=== PATIENT | female | born 1990 | race Caucasian/White ===

== ENCOUNTER 2018-06-09 08:20 | Emergency (ER) | payer MEDICAID, SELFPAY ==
[2018-06-09 08:27] VITALS: BP 111/73; PULSE 82; RESP 16; TEMP 36.3; O2SAT 98
--- NOTE | 2018-06-09 08:49 | DI.RAD_ITS ---
SYMPTOMS/DIAGNOSIS: PAIN, SWELLING, INJECTED HEROIN, ASSESS FOR FOREIGN BODY LEFT FOREARM: Two views. No bone or joint abnormality is identified. No radiopaque foreign bodies are seen in the soft tissues. IMPRESSION: No radiopaque foreign bodies present in the soft tissues.
--- NOTE | 2018-06-09 08:50 | W.ED.GENAD ---
Discharge Plan Disposition Patient Disposition: HOME Condition: Serious Discharge Details Chief Complaint: Cellulitis Clinical Impression: Abscess of forearm, left Primary Care Provider: Stacey Kendall ED Provider: Rikki Lopez Home Meds and New Rx's Prescriptions: New doxycycline hyclate 100 mg tablet 100 mg PO BID Qty: 19 RF: 0 amoxicillin-pot clavulanate [Augmentin] 875-125 mg tablet 1 tab PO BID Qty: 19 RF: 0 naloxone [Narcan] 4 mg/actuation spray,non-aerosol 1 spray MARGARITA ONCE PRN (Reason: opioid overdose) Qty: 2 RF: 0 Continue methadone 10 MG/1 ML concentrate 45 mg PO DAILY RF: 0 levonorgestrel [Mirena] 1 EACH intrauterine device 1 ea Intrauterine ONCE Qty: 1 RF: 0 bupropion HCl [Wellbutrin XL] 300 MG tablet extended release 24 hr 300 mg PO DAILY Qty: 90 RF: 3 Discharge Instructions Instructions: Narcotic Abuse (ED), Abscess (ED) Additional Instructions: Please take the full course of antibiotic as prescribed. Stop using IV drugs. Please follow-up with Dr. Jerez. Call his office on Sunday to schedule an appointment. Please contact your primary care physician to arrange follow-up. Return to the ER for any worsening or new concerning symptoms. Referrals: Raman Jerez MD [ [facility] STAFF PHYSICIAN] - Stacey Kendall NP [Primary Care Provider] - Medical Decision Making 8:55 -- 27yo f with swelling, pain and overlying erythema left mid forearm at heroin injection site, worsening over the past 3 days. Compartment soft with no crepitus. Pain with extension wrist. -- xray forearm reviewed and interpreted by me: neg for air in soft tissue or fb. -- bedside POC us performed by me: abscess noted 2cm deep. I consulted orthopedics Dr. Jerez who evaluated patient at bedside and performed I/D with local anesthetic - please see his documentation. We discussed abx coverage and plan to continue her on doxycyclin and augmentin. Patient to call Dr. Jerez's office to schedule follow-up. HPI General Mode of arrival: ambulatory. Date/Time Provider Initiated Documentation: 06/09/18 08:42. Limitations to Documentation: no limitations. Information obtained by: patient. HPI Narrative: 27-year-old female presents with chief complaint of painful swelling of her left forearm. Patient notes that started 2-3 days ago after she injected heroin in that area. And swelling is moderate to severe. Increasing. No modifiers. No associated fever. She has never had abscess in the past. Related Data Home Medications Medication Instructions Recorded Confirmed levonorgestrel [Mirena] 1 ea INTRAUTERINE ONCE #1 implant 05/12/15 06/09/18 methadone 45 mg PO DAILY 05/12/15 06/09/18 bupropion HCl [Wellbutrin XL] 300 mg PO DAILY #90 tab-cap 07/12/15 06/09/18 amoxicillin-pot clavulanate 1 tab PO BID #19 tab 06/09/18 [Augmentin] doxycycline hyclate 100 mg PO BID #19 tab 06/09/18 naloxone [Narcan] 1 spray MARGARITA ONCE PRN #2 each 06/09/18 Previous Rx's Medication Instructions Recorded amoxicillin-pot clavulanate 1 tab PO BID #19 tab 06/09/18 [Augmentin] doxycycline hyclate 100 mg PO BID #19 tab 06/09/18 naloxone [Narcan] 1 spray MARGARITA ONCE PRN #2 each 06/09/18 Allergies Allergy/AdvReac Type Severity Reaction Status Date / Time No Known Allergies Allergy Unverified 06/09/18 08:30 General Stated Complaint: Cellulitis CALUDE: 3 Review of Systems Review of Systems All systems reviewed & are unremarkable except as noted in HPI and below PFSH Family History Mother Mental disorder Father Alcohol abuse Sister No problems noted. Sister No problems noted. Brother No problems noted. Brother No problems noted. Brother No problems noted. Medical History IVDU (intravenous drug user) (Acute) adhd anxiety depression Social History Smoking/Tobacco Use Status: Current every day Surgical History Tonsillectomy Exam Const General: cooperative and no acute distress Neck Neck: trachea midline and supple Resp Auscultation: clear to auscultation bilaterally, no rales, no rhonchi and no wheezes Cardio Jugular venous pressure: no JVD Rate: regular rate and not tachycardic Rhythm: regular rhythm Skin Rashes: rashes noted (Left forearm with erythema and swelling) Other: Track segura right dorsal hand Neuro General: alert, awake, oriented x3, tone normal and other (no strength and sensation distal LUE) Motor: other Extrem Left upper extremity: full ROM, normal capillary refill, no joint enlargement and elbow/forearm Details: tenderness Location: of the mid-shaft forearm and swelling Location: of the mid-shaft forearm; no cyanosis Course Vital Signs Temperature 36.3 C L 06/09/18 08:27 Pulse 82 06/09/18 08:27 Respiratory Rate 16 06/09/18 08:27 Blood Pressure 111/73 06/09/18 08:27 Pulse Oximetry 98 06/09/18 08:27 Temperature 36.3 C L 06/09/18 08:27 Temperature Source Skin 06/09/18 08:27 Pulse 82 06/09/18 08:27 Respiratory Rate 16 06/09/18 08:27 Respiratory Effort 06/09/18 08:27 Blood Pressure 111/73 06/09/18 08:27 Blood Pressure Position Sitting 06/09/18 08:27 Pulse Oximetry 98 06/09/18 08:27 Oxygen Delivery Method Room Air 06/09/18 08:27 Oxygen Flow Rate 0 06/09/18 08:27 Pain Level 5 06/09/18 08:27
--- NOTE | 2018-06-09 08:55 | ED.GENADUL_ITS ---
Discharge Plan Disposition Patient Disposition: HOME Condition: Serious Discharge Details Chief Complaint: Cellulitis Clinical Impression: Abscess of forearm, left Primary Care Provider: Stacey Kendall ED Provider: Rikki Lopez Home Meds and New Rx's Prescriptions: New doxycycline hyclate 100 mg tablet 100 mg PO BID Qty: 19 RF: 0 amoxicillin-pot clavulanate [Augmentin] 875-125 mg tablet 1 tab PO BID Qty: 19 RF: 0 naloxone [Narcan] 4 mg/actuation spray,non-aerosol 1 spray MARGARITA ONCE PRN (Reason: opioid overdose) Qty: 2 RF: 0 Continue methadone 10 MG/1 ML concentrate 45 mg PO DAILY RF: 0 levonorgestrel [Mirena] 1 EACH intrauterine device 1 ea Intrauterine ONCE Qty: 1 RF: 0 bupropion HCl [Wellbutrin XL] 300 MG tablet extended release 24 hr 300 mg PO DAILY Qty: 90 RF: 3 Discharge Instructions Instructions: Narcotic Abuse (ED), Abscess (ED) Additional Instructions: Please take the full course of antibiotic as prescribed. Stop using IV drugs. Please follow-up with Dr. Jerez. Call his office on Sunday to schedule an appointment. Please contact your primary care physician to arrange follow-up. Return to the ER for any worsening or new concerning symptoms. Referrals: Raman Jerez MD [ [facility] STAFF PHYSICIAN] - Stacey Kendall NP [Primary Care Provider] - Medical Decision Making 8:55 -- 27yo f with swelling, pain and overlying erythema left mid forearm at heroin injection site, worsening over the past 3 days. Compartment soft with no crepitus. Pain with extension wrist. -- xray forearm reviewed and interpreted by me: neg for air in soft tissue or fb. -- bedside POC us performed by me: abscess noted 2cm deep. I consulted orthopedics Dr. Jerez who evaluated patient at bedside and performed I/D with local anesthetic - please see his documentation. We discussed abx coverage and plan to continue her on doxycyclin and augmentin. Patient to call Dr. Jerez's office to schedule follow-up. HPI General Mode of arrival: ambulatory . Date/Time Provider Initiated Documentation: 06/09/18 08:42 . Limitations to Documentation: no limitations . Information obtained by: patient . HPI Narrative: 27-year-old female presents with chief complaint of painful swelling of her left forearm. Patient notes that started 2-3 days ago after she injected heroin in that area. And swelling is moderate to severe. Increasing. No modifiers. No associated fever. She has never had abscess in the past. Related Data Home Medications Medication Instructions Recorded Confirmed levonorgestrel [Mirena] 1 ea INTRAUTERINE ONCE #1 implant 05/12/15 06/09/18 methadone 45 mg PO DAILY 05/12/15 06/09/18 bupropion HCl [Wellbutrin XL] 300 mg PO DAILY #90 tab-cap 07/12/15 06/09/18 amoxicillin-pot clavulanate 1 tab PO BID #19 tab 06/09/18 [Augmentin] doxycycline hyclate 100 mg PO BID #19 tab 06/09/18 naloxone [Narcan] 1 spray MARGARITA ONCE PRN #2 each 06/09/18 Previous Rx's Medication Instructions Recorded amoxicillin-pot clavulanate 1 tab PO BID #19 tab 06/09/18 [Augmentin] doxycycline hyclate 100 mg PO BID #19 tab 06/09/18 naloxone [Narcan] 1 spray MARGARITA ONCE PRN #2 each 06/09/18 Allergies Allergy/AdvReac Type Severity Reaction Status Date / Time No Known Allergies Allergy Unverified 06/09/18 08:30 General Stated Complaint: Cellulitis CLAUDE: 3 Review of Systems Review of Systems All systems reviewed & are unremarkable except as noted in HPI and below PFSH Family History Mother Mental disorder Father Alcohol abuse Sister No problems noted. Sister No problems noted. Brother No problems noted. Brother No problems noted. Brother No problems noted. Medical History IVDU (intravenous drug user) (Acute) adhd anxiety depression Social History Smoking/Tobacco Use Status: Current every day Surgical History Tonsillectomy Exam Const General: cooperative and no acute distress Neck Neck: trachea midline and supple Resp Auscultation: clear to auscultation bilaterally, no rales, no rhonchi and no wheezes Cardio Jugular venous pressure: no JVD Rate: regular rate and not tachycardic Rhythm: regular rhythm Skin Rashes: rashes noted (Left forearm with erythema and swelling) Other: Track segura right dorsal hand Neuro General: alert, awake, oriented x3, tone normal and other (no strength and sensation distal LUE) Motor: other Extrem Left upper extremity: full ROM, normal capillary refill, no joint enlargement and elbow/forearm Details: tenderness Location: of the mid-shaft forearm and swelling Location: of the mid-shaft forearm; no cyanosis Course Vital Signs Temperature 36.3 C L 06/09/18 08:27 Pulse 82 06/09/18 08:27 Respiratory Rate 16 06/09/18 08:27 Blood Pressure 111/73 06/09/18 08:27 Pulse Oximetry 98 06/09/18 08:27 Temperature 36.3 C L 06/09/18 08:27 Temperature Source Skin 06/09/18 08:27 Pulse 82 06/09/18 08:27 Respiratory Rate 16 06/09/18 08:27 Respiratory Effort 06/09/18 08:27 Blood Pressure 111/73 06/09/18 08:27 Blood Pressure Position Sitting 06/09/18 08:27 Pulse Oximetry 98 06/09/18 08:27 Oxygen Delivery Method Room Air 06/09/18 08:27 Oxygen Flow Rate 0 06/09/18 08:27 Pain Level 5 06/09/18 08:27
--- NOTE | 2018-06-09 10:12 | DI.VRAD_ITS ---
EXAM: XR Left Forearm, 2 Views EXAM DATE/TIME: 06/09/2018 9:09 AM CLINICAL HISTORY: 27 years old, female; Signs and symptoms; Other: Pain and swelling, injected heroine, assess fo fb TECHNIQUE: XR Left forearm 2 views. COMPARISON: No relevant prior studies available. FINDINGS: Bones/joints: Normal. No acute fracture. No dislocation. Soft tissues: No metallic foreign body identified. IMPRESSION: No metallic foreign body identified. Dictated and Authenticated by: Lee Valerio MD. Ordering:MARIA ESTHER BARAJAS MD
--- NOTE | 2018-06-09 10:38 | W.ORTHOCONSU ---
Date of service: 06/09/18 Time of Service: 10:38 History of Present Illness Chief Complaint: Left Forearm Pain Narrative: Tia is a 27yo who has a history of IVDU. She has had many social stressors lately and relapsed about 3 days ago. She had a friend inject the ulnar aspect of the left forearm. Over the last 2 days this area has become more tense, swollen, warm, and red. She denies any numbness or tingling. She has had pain with movement of the wrist and fingers but she is able to do it. She denies any fever or chills. She has had no previous infections. Consults Consult date: 06/09/18 Requesting physician: Rikki Lopez Consult Reason Left Forearm Abscess Assessment and Plan (1) Abscess of left forearm: Start date: 06/06/18 Current visit: Yes Status: Acute Tia is a 27yo female who has a history of IVDU and an unfortunate relapse about 3 days ago. She has an abscess of the left forearm. It is located above the fascia in the dorsal soft tissues of the forearm based on the bedside U/S performed by Dr. Lopez. I had a long discussion with Tia about treatment options. She frequently asks about how long it's going to take and want to make it better as quick as possible and get out of the hospital. Given the location above the fascia, no systemic features, no signs of compartment syndrome, and no signs of necrotizing fasciitis, we can attempt a bedside I&D. I reviewed these risks with Tia to include bleeding, continued infection, recurrence, need for repeat procedures, wound healing difficulties. Despite these risks, she elected to proceed. She tolerated this well and we were able evacuate a large amount of purulence from the left forearm. This was sent to the lab for cultures. The purulence did have a strong malodor which is concerning for Gram Negative Neymar. Therefore, we will treat with Doxy for possible MRSA as well as Cipro for GNR. Review of Systems Review of Systems All systems reviewed & are unremarkable except as noted in HPI and below PFSH Family History Mother Mental disorder Father Alcohol abuse Sister No problems noted. Sister No problems noted. Brother No problems noted. Brother No problems noted. Brother No problems noted. Medical History IVDU (intravenous drug user) (Acute) adhd anxiety depression Social History Smoking/Tobacco Use Status: Current every day Surgical History Tonsillectomy Exam Narrative Exam Narrative: NAD. AAOx3. Not ill appearing. LUE shows rather full AROM. She is able to move her elbow and shoulder without limitation. She is able to demonstrate ulnar and radial deviation, pronation and supination, flexion and extension. She has some pain with those movements but has no significant limitation. There is some pain with the extremes of passive motion. No pain with gentle passive stretch. SILT Med/Rad/Uln. Fullness palpated over the ulnar aspect of the forearm. There is a central area of induration about 2cm in diameter with erythema expanding from this area. There is a fullness about 8cm in length expanding from this central area. There is no defect in the skin or sign of previous injection. There is no drainage or wound. There is pain to palpation and warmth of the area. Results Last Vital Signs Temp 36.3 C L 06/09/18 08:27 Pulse 82 06/09/18 08:27 Resp 16 06/09/18 08:27 BP 111/73 06/09/18 08:27 Pulse Ox 98 06/09/18 08:27 Labs : 06/09/18 10:14 06/09/18 10:14 Imaging Imaging Studies: XR of the L Forearm: There is no fracture. No radiopaque foreign body. No gas in the soft tissues. Procedures Abscess I/D Site: upper extremity (left forearm) Side (if applicable): left Sedation/analgesia: none Anesthetic used: bupivacaine Technique: incised with #11 blade Amount of fluid (mL): 20 Irrigation: Yes Packing used?: none
[2018-06-09] MEDS: Lidocaine 4% Cream 5 GM TUBE TP (10:51)
[2018-06-09 11:30] VITALS: BP 111/75; PULSE 71; RESP 16; TEMP 37.4; O2SAT 97
[2018-06-09 11:32] VITALS: BP 116/77; PULSE 79; RESP 14; TEMP 37.4; O2SAT 95
[2018-06-09] MEDS: Doxycycline Hyclate 100 MG CAP PO (11:44)
[2018-06-09] MEDS: Amoxicillin 875/Clav. 125 TAB PO (11:44)
== END 2018-06-09 12:26 | disposition home or self-care (01) ==
PROVIDERS: Emergency Provider Student in an Organized Health Care Education/Training Program; PCP Nurse Practitioner
DX: L02.414 Cutaneous abscess of left upper limb (principal); S51.832A Puncture wound without foreign body of left forearm, initial encounter; W46.0XXA Contact with hypodermic needle, initial encounter; R60.0 Localized edema; F11.10 Opioid abuse, uncomplicated
CPT/HCPCS: 10060; 36415; 80053; 87040; 87077; 99254; 99284; 73090; 85025; 87070; 87186; 87205

== ENCOUNTER 2018-11-27 11:55 | Emergency (ER) | payer MEDICAID, SELFPAY ==
[2018-11-27 12:00] VITALS: BP 141/90; PULSE 122; RESP 20; TEMP 37; O2SAT 95
--- NOTE | 2018-11-27 12:13 | ED.GENADUL_ITS ---
Discharge Plan Disposition Patient Disposition: HOME Condition: Stable Discharge Details Chief Complaint: Cellulitis Clinical Impression: Abscess of hand, left Primary Care Provider: Stacey Kendall ED Provider: Femi Gaines Home Meds and New Rx's Prescriptions: New sulfamethoxazole-trimethoprim [Bactrim DS] 800-160 mg tablet 1 tab PO BID 5 Days Qty: 10 RF: 0 No Action methadone 10 MG/1 ML concentrate 45 mg PO DAILY RF: 0 Mirena 1 EACH intrauterine device 1 ea Intrauterine ONCE Qty: 1 RF: 0 Narcan 4 mg/actuation spray,non-aerosol 1 spray MARGARITA ONCE PRN (Reason: opioid overdose) Qty: 2 RF: 0 Discharge Instructions Instructions: Abscess (ED) Medical Decision Making pt states she injected heroin in left posterior hand 3 days ago or so and has had increased redness and swelling since. he has an abscess on exam that is 3x2cm of the left mid posterior hand. Denies fevers, has no severe pain or crepitus so doubt sepsis or nec fasc. I drained the abscess and will place on abx, she was given return precautions as well. She is not interested in drug abuse programs at this time Differential Diagnosis cellulitis, abscess HPI General Mode of arrival: ambulatory . Date/Time Provider Initiated Documentation: 11/27/18 11:55 . Limitations to Documentation: no limitations . Information obtained by: patient . History of Present Illness 28 year old F presents to the emergency department with the chief complaint of left hand abscess, described as moderate, Patient started experiencing this day(s) (3) and it has been constant. No relieving factors improve symptom(s), No exacerbating factors reported . Patient did receive the following treatments prior to arrival, none Related Data Home Medications Medication Instructions Recorded Confirmed Mirena 1 ea INTRAUTERINE ONCE #1 implant 05/12/15 11/27/18 methadone 45 mg PO DAILY 05/12/15 11/27/18 naloxone [Narcan] 1 spray MARGARITA ONCE PRN #2 each 06/09/18 11/27/18 sulfamethoxazole-trimethoprim 1 tab PO BID 5 Days #10 tab 11/27/18 [Bactrim DS] Previous Rx's Medication Instructions Recorded naloxone [Narcan] 1 spray MARGARITA ONCE PRN #2 each 06/09/18 sulfamethoxazole-trimethoprim 1 tab PO BID 5 Days #10 tab 04/24/19 [Bactrim DS] Allergies Allergy/AdvReac Type Severity Reaction Status Date / Time No Known Allergies Allergy Unverified 11/27/18 12:02 General Stated Complaint: Cellulitis CLAUDE: 3 Review of Systems Review of Systems All systems reviewed & are unremarkable except as noted in HPI and below Constitutional Denies chills, Denies fever(s) and Denies weakness ENT Denies change in voice Cardiovascular Denies chest pain and Denies dyspnea Respiratory Denies cough and Denies dyspnea Gastrointestinal Denies abdominal pain, Denies nausea and Denies vomiting Musculoskeletal Denies joint swelling Neurologic Denies weakness PFSH Medical History IVDU (intravenous drug user) (Acute) adhd anxiety depression Surgical History Tonsillectomy Family History Mother Mental disorder Father Alcohol abuse Sister No problems noted. Sister No problems noted. Brother No problems noted. Brother No problems noted. Brother No problems noted. Social History Smoking/Tobacco Use Status: Current every day Alcohol Intake: never Drug use: Occasionally Substance use type: crack/cocaine, heroin and other Details: methadone Do you feel safe at home: Yes Do you feel safe in your relationship?: Yes Exam Const General: no acute distress Orientation: alert HENMT Head: normal to inspection Ears: external ears normal General nose exam: external nose normal Mouth: moist mucous membranes Eyes General: appearance normal, both eyes and all related structures Neck Neck: normal visual inspection Resp Effort & Inspection: normal respiratory effort and able to speak in complete sentences Cardio Rate: regular rate Skin General skin exam: elasticity normal Neuro General: alert and oriented x3 Extrem General: full ROM and normal capillary refill Psych Mental Status: mental status grossly normal Course Vital Signs Temperature 37 C 11/27/18 12:00 Pulse 122 H 11/27/18 12:00 Respiratory Rate 20 11/27/18 12:00 Blood Pressure 141/90 H 11/27/18 12:00 Pulse Oximetry 95 11/27/18 12:00 Temperature 37 C 11/27/18 12:00 Temperature Source Temporal Artery Scan 11/27/18 12:00 Pulse 122 H 11/27/18 12:00 Respiratory Rate 20 11/27/18 12:00 Respiratory Effort Non-Labored 11/27/18 12:00 Blood Pressure 141/90 H 11/27/18 12:00 Pulse Oximetry 95 11/27/18 12:00 Pain Level 8 11/27/18 12:00
[2018-11-27 12:14] VITALS: BP 141/90; PULSE 122; RESP 20; TEMP 37; O2SAT 95
== END 2018-11-27 12:15 | disposition home or self-care (01) ==
PROVIDERS: Emergency Provider Emergency Medicine; PCP Nurse Practitioner
DX: L02.412 Cutaneous abscess of left axilla (principal)
CPT/HCPCS: 10060

== ENCOUNTER 2024-03-31 16:33 | Emergency (ER) | payer MEDICAID, SELFPAY ==
[2024-03-31 16:37] VITALS: BP 124/78; PULSE 69; RESP 18; TEMP 36.7; O2SAT 98
--- NOTE | 2024-03-31 18:35 | ED.GENADUL_ITS ---
Discharge Plan Disposition Patient Disposition: Home Condition: Stable Discharge Details Clinical Impression: Abscess, Finger injury Primary Care Provider: Unknown,Unknown ED Provider: Maddison Dinh Home Meds and New Rx's Prescriptions: New cephalexin 500 mg capsule 500 mg PO QID 7 Days Qty: 28 0RF sulfamethoxazole-trimethoprim [Bactrim DS] 800-160 mg tablet 1 tab PO BID 7 Days Qty: 14 0RF No Action methadone 10 MG/1 ML concentrate 45 mg PO DAILY Mirena 1 EACH intrauterine device 1 ea Intrauterine ONCE Qty: 1 naloxone [Narcan] 4 mg/actuation spray,non-aerosol 1 spray MARGARITA ONCE PRN (Reason: opioid overdose) Qty: 2 0RF Discharge Instructions Instructions: Abscess Incision and Drainage ED Additional Instructions: You were seen in the emergency department today for evaluation of a finger injury. You had an abscess drained and were started on antibiotics. Please follow up with your PCP and thank you for allowing us to be part of your care. Discharge Data Discharge Date/Time-TO BE ENTERED AT DEPARTURE: 03/31/24 18:57 HPI General Date/Time Provider Initiated Documentation: 03/31/24 18:03 . HPI Narrative: MDM: In brief, this is a 33-year-old female patient with a past medical history for IVDU, anxiety, presenting with a finger injury. Differential includes but is not limited to abscess, cellulitis, the injury was to skin only, and the patient did not have a mechanism concerning for fracture or dislocation. She has no evidence on my physical examination for flexor tenosynovitis,. She is systemically well without concern for sepsis or bacteremia. ED Course: The blister was unroofed with drainage of purulent material, which w as sent for culture. I started the patient on Keflex and Bactrim for abscess coverage, and provided her with a referral to primary care. At this time, the patient has had a full medical evaluation and is safe for discharge to home. They are hemodynamically stable, ambulatory, and tolerating PO. They are understanding of the follow-up plan and return precautions. They left our facility without incident. Maddison Dinh MD HPI: This is a 33-year-old female patient presenting for evaluation of a finger injury. The patient reports that approximately a week ago she pinched the skin of her right index finger, and initially felt fine, but noted a blister formed it became more painful over the course of the last few days. She has not noted any redness or swelling that extends up her finger, has preserved range of motion of the finger, and has not been running a fever or experiencing chills. She has been eating and drinking normally for herself, has no history of recent antibiotic use. Exam: Gen: Awake and alert, in no apparent distress HEENT: Non-icteric sclera Neck: Supple Lungs: No apparent respiratory distress, normal respiratory effort. CV: Appears well perfused Abdomen: Non-distended MSK: Moves 4 extremities without apparent limitation in ROM Skin: Visualized skin without rashes, cyanosis. The patient has a 1 cm blister on the dorsal aspect of the right index finger over the middle phalanx, no nailbed involvement, no flexor tendon swelling or pain, finger is not held in a flexed position, range of motion preserved Neuro: Normal Gait, no obvious focal deficits or facial asymmetry. Speaks in full, clear sentences. Sensation and circulation preserved distal to the abscess. Psych: Appropriate for situation. Related Data Home Medications ?Medication ?Instructions ?Recorded ?Confirmed levonorgestrel 21 mcg/24 hr (up to 1 ea intrauterine ONCE #1 implant 05/12/15 03/31/24 8 years) 52 mg intrauterine device (Mirena) methadone 10 mg/mL oral concentrate 45 mg PO DAILY 05/12/15 03/31/24 naloxone 4 mg/actuation nasal 1 spray intranasal ONCE PRN opioid 06/09/18 03/31/24 spray (Narcan) overdose #2 ea cephalexin 500 mg capsule 500 mg PO QID 1 week #28 caps 03/31/24 sulfamethoxazole 800 1 tab PO BID 1 week #14 tabs 03/31/24 mg-trimethoprim 160 mg tablet (Bactrim DS) Previous Rx's ?Medication ?Instructions ?Recorded naloxone 4 mg/actuation nasal 1 spray intranasal ONCE PRN opioid 06/09/18 spray (Narcan) overdose #2 ea cephalexin 500 mg capsule 500 mg PO QID 1 week #28 caps 03/31/24 sulfamethoxazole 800 1 tab PO BID 1 week #14 tabs 03/31/24 mg-trimethoprim 160 mg tablet (Bactrim DS) Allergies Allergy/AdvReac Type Severity Reaction Status Date / Time No Known Allergies Allergy Unverified 03/31/24 16:40 General Stated Complaint: Cellulitis CLAUDE: 4 Course Vital Signs Vital signs: Vital Signs Temperature 36.7 C 03/31/24 16:37 Pulse 69 03/31/24 16:37 Respiratory Rate 18 03/31/24 16:37 Blood Pressure 124/78 03/31/24 16:37 Pulse Oximetry 98 03/31/24 16:37 Temperature 36.7 C 03/31/24 16:37 Pulse 69 03/31/24 16:37 Respiratory Rate 18 03/31/24 16:37 Respiratory Effort Normal 03/31/24 16:40 Blood Pressure 124/78 03/31/24 16:37 Pulse Oximetry 98 03/31/24 16:37 Pain Level 2 03/31/24 16:37 Medical Decision Making Quality:SDOH Health Related Social Needs: No Data to Display PFSH All Active Problems (Updated 03/31/24 @ 18:35 by Maddison Dinh MD) Finger injury (Acute) Abscess (Acute) IVDU (intravenous drug user) (Acute) Abscess of left forearm (Acute) Medical History (Updated 03/31/24 @ 18:35 by Maddison Dinh MD) depression anxiety adhd Surgical History Tonsillectomy Family History Mother Mental disorder Father Alcohol abuse Sister No problems noted. Sister No problems noted. Brother No problems noted. Brother No problems noted. Brother No problems noted. Social History Smoking/Tobacco Use Status: Current every day Smoking risk assessment performed?: Yes Alcohol Intake: never Drug use: Occasionally Substance use type: crack/cocaine, heroin and other Details: methadone Do you feel safe at home: Yes Do you feel safe in your relationship?: Yes
[2024-03-31] MEDS: Sulfameth/Trimeth DS TAB 1 TAB PO (18:38)
[2024-03-31] MEDS: Cephalexin 500 MG CAP PO (18:38)
--- NOTE | 2024-03-31 19:01 | NUR.NOTE ---
Referral faxed to [facility] [place] on for telephone call. Needs PCP, abscess finger, establish care, in 1 week. Nursing Note:
--- NOTE | 2024-04-01 11:21 | NUR.NOTE ---
Access chart to determine antibiotics on discharge for wound culture; MRSA positive. Nursing Note:
== END 2024-03-31 18:57 | disposition home or self-care (01) ==
PROVIDERS: Emergency Provider Emergency Medicine
DX: S60.420A Blister (nonthermal) of right index finger, initial encounter (principal); L03.011 Cellulitis of right finger; W23.0XXA Caught, crushed, jammed, or pinched between moving objects, initial encounter
CPT/HCPCS: 10140; 87077; 99283; 87070; 87186; 87205; 99284

== ENCOUNTER 2024-07-21 18:06 | Emergency (ER) | payer MEDICAID, SELFPAY ==
[2024-07-21 18:30] VITALS: BP 154/71; PULSE 99; RESP 15; TEMP 36.6; O2SAT 91
--- OUTSIDE RECORDS SUMMARY | 2024-07-21 18:34 | XMS_ITS | Encounter Summary ---
Author Organization [facility] Address [address] [place] [address] Care Team Providers Care Power Manager Name Role Phone Daniel Rich MD Primary Care Provider Unav ailable Encounter Details Date Type Department Care Team ([facility] st Contact Info) Description 06/03/2019 Results Only [facility] [phone] Kacy Paredes MD [address] [place] [phone] Social History Tobacco Use Types Packs/Day Years Used Date Smoking Tobacco: Never Assessed Comments Unknown Sex and Gender Information Value Date Recorded Sex Assigned at Not on file Legal Sex Female 18:33 EST Gender Identity Not on file Sexual Orientation Not on file documented as of this encounter Plan of Treatment Not on file documented as of this encounter Procedures Procedure Name Priority Date/Time Associated Diagnosis Comments CHLAMYDIA/N. GONORRHOEAE AMPLIFIED RNA, URINE Routine 06/03/2019 15:40 EDT documented in this encounter Results * CHLAMYDIA/N. GONORRHOEAE AMPLIFIED RNA, URINE (06/03/2019 15:40 EDT) Chlamydia Result Negative 06/04/20 19 12:56 EDT [facility] GC Result Negative 06/04/2019 12:56 EDT [facility] Comment: A first catch urine specimen is acceptable for detection of Gonorrhea and Chlamydia, but might detect up to 10% fewer infections when compared with vaginal and endocervical swab samples. URINE / Unknown 06/03/2019 1 5:40 EDT 06/03/2019 21:31 EDT us Kacy Paredes MD MICROBIOLOGY - GENERAL ORDERABL ES Final Result [facility] [address] [place] [address] documented in this encounter Visit Diagnoses Not on filedocumented in this encounter Care Teams Power Manager Relationship Specialty Start Date End Date Daniel Rich MD PCP - General 07/21/11 documented as of this encounter
--- OUTSIDE RECORDS SUMMARY | 2024-07-21 18:34 | XMS_ITS | Encounter Summary ---
Author Organization [facility] Address [address] [place] [address] Care Team Providers Care Welfare Worker Name Role Phone Daniel Rich MD Primary Care Provider Unav ailable Encounter Details Date Type Department Care Team (Late st Contact Info) Description 10/14/[address] [facility] Services - [facility] ([facility]) [address] [place], [place] [address] Macy Odonnell MD [address] [place] [address] [address] [place] [address] Social History Tobacco Use Types Packs/Day Years [...] Comments CHLAMYDIA/N. GONORRHOEAE AMPLIFIED RNA, URINE Routine 10/14/2012 15:30 EDT HEPATITIS C AB W REFLEX TO HCV RNA BY PCR Routine 10/14/2012 15:30 EDT HEPATITIS B CORE ANTIBODY (TOTAL) Routine 10/14/2012 15:30 EDT HEPATITIS B SURFACE ANTIBODY Routine 10/14/2012 15:30 EDT HEPATITIS B SURFACE ANTIGEN Routine 10/14/2012 15:30 EDT documented in this encounter Results * CHLAMYDIA/GC AMPLIFIED, URINE (10/14/2012 15:30 EDT) Specimen Description Urine [facility] Chlamydia Result No Chlamydia trachomatis DNA detected by society reporter mediated amplification. [facility] GC Result No Neisseria gonorrhoeae DNA detected by society reporter mediated amplification. [facility] 10/14/2012 15:3 0 EDT 10/14/2012 20:38 EDT Macy Odonnell MD MICROBIOLOGY - GENERAL OR DERABLES Final Result [facility] [address] [place] [address] * HEPATITIS C ANTIBODY (10/14/2012 15:30 EDT) Hepatitis C Ab Negative [facility] Comment:Reference Range: Neg ative 10/14/2012 15:3 0 EDT 10/14/2012 20:16 EDT Macy Odonnell MD CHEMISTRY & BLOOD GAS ORD ERABLES Final Result Performing Organization Address [facility] Co de Phone Number [facility] [address] [place] [address] * HEPATITIS B CORE ANTIBODY (10/14/2012 15:30 EDT) Hep B Core Ab Negative [facility] Comment: Reference Range: ??Negative Interpretation depends on clinical setting. 10/14/2012 15:3 0 EDT 10/14/2012 20:16 EDT Macy Odonnell MD CHEMISTRY & BLOOD GAS ORD ERABLES Final Result Performing Organization Address [facility] Co de Phone Number [facility] [address] [place] [address] * HEPATITIS B SURFACE ANTIGEN (10/14/2012 15:30 EDT) Hepatitis B Surface Ag Negative [facility] Comment:Reference Range: Neg ative 10/14/2012 15:3 0 EDT 10/14/2012 20:16 EDT Macy Odonnell MD CHEMISTRY & BLOOD GAS ORD ERABLES Final Result Performing Organization Address [facility] de Phone Number [facility] [address] [place] [address] * HEPATITIS B SURFACE ANTIBODY (10/14/2012 15:30 EDT) Hepatitis B Surface Ab Negative [facility] Comment: Reference Range: Unvaccinated: ??Negative Vaccinated: ??Positive HBs Antibody, Quant <5.0 mIU/mL [facility] Comment: Patient is presumed to not be immune to infection with HBV. Reference Range: Positive: >=12.0 mIU/mL Indeterminate: >=5.0 to <12.0 mIU/mL Negative: <5.0 mIU/mL 10/14/2012 15:3 0 EDT 10/14/2012 20:16 EDT Macy Odonnell MD CHEMISTRY & BLOOD GAS ORD ERABLES Final Result Performing Organization Address [facility] Co de Phone Number [facility] [address] [place] [address] documented in this encounter Visit Diagnoses Not on filedocumented in this encounter Care Teams Welfare Worker Relationship Specialty Start Date End Date Daniel Rich MD PCP - General 07/21/11 documented as of this encounter
--- OUTSIDE RECORDS SUMMARY | 2024-07-21 18:34 | XMS_ITS | Encounter Summary ---
Author Organization [facility] Address [address] [place] [address] Care Team Providers Care Corncob Pipe Manufacturing Supervisor Name Role Phone Daniel Rich MD Primary Care Provider Unav ailable Encounter Details Date Type Department Care Team (Latest Contact Info) Description 06/03/2019 8:31 EDT - 06/03/2019 8:32 EDT Hospital Encounter [address] [address] Kacy Paredes MD [address] [place] [phone] Discharge Disposition: Home or Self Care Social History Tobacco Use Types Packs/Day Years Used Date Smoking Tobacco: Never Assessed Comments Unknown Sex and Gender Information Value Date Recorded Sex Assigned at Not on file Legal Sex Female 18:33 EST Gender Identity Not on file Sexual Orientation Not on file documented as of this encounter Discharge Diagnoses Diagnosis Z11.3 Encounter for screening for infections with a predominantly sexual mode of transmission-Z11.3[ICD-10-CM] Z11.8 Encounter for screening for other infectious and parasitic diseases-Z11.8[ICD-10-CM] documented in this encounter Discharge Disposition Disposition Code Departure Means Destination Home or Self Care documented in this encounter Plan of Treatment Not on file documented as of this encounter Visit Diagnoses Not on filedocumented in this encounter Care Teams Corncob Pipe Manufacturing Supervisor Relationship Specialty Start Date End Date Daniel Rich MD PCP - General 07/21/11 documented as of this encounter
--- OUTSIDE RECORDS SUMMARY | 2024-07-21 18:34 | XMS_ITS | Encounter Summary ---
Author Organization [facility] Address [address] [place] [address] Care Team Providers Care Fur Stretcher Name Role Phone Daniel Rich MD Primary Care Provider Unav ailable Encounter Details Date Type Department Care Team (Late st Contact Info) Description 07/21/2011 8:13 EST - 07/21/2011 8:14 EST Hospital Encounter [facility] [address] [place] [address] Remigio Rock MD [address] [place] [phone] Discharge Disposition: Home or Self Care Social History Tobacco Use Types Packs/Day Years Used Date Smoking Tobacco: Never Assessed Comments Unknown Sex and Gender Information Value Date Recorded Sex Assigned at Not on file Legal Sex Female 18:33 EST Gender Identity Not on file Sexual Orientation Not on file documented as of this encounter Discharge Disposition Disposition Code Departure Means Destination Home or Self Care documented in this encounter Plan of Treatment Not on file documented as of this encounter Visit Diagnoses Not on filedocumented in this encounter Care Teams Fur Stretcher Relationship Specialty Start Date End Date Daniel Rich MD PCP - General 07/21/11 documented as of this encounter
--- OUTSIDE RECORDS SUMMARY | 2024-07-21 18:34 | XMS_ITS | Encounter Summary ---
Author Organization [facility] Address [address] [place] [address] Care Team Providers Care Box Bender Name Role Phone Unavailable Primary Care Provider Unavailabl e Encounter Details Date Type Department Care Team (Late st Contact Info) Description 05/10/2010 Results Only [facility] O[facility] Services - [facility] [address] [place] [address] Isaac Domínguez MD [address] [place] [phone] Social History Tobacco Use Types Packs/Day Years Used Date Smoking Tobacco: Never Assessed Comments Unknown Sex and Gender Information Value Date Recorded Sex Assigned at Not on file Legal Sex Female 18:33 EST Gender Identity Not on file Sexual Orientation Not on file documented as of this encounter Plan of Treatment Pending Results Name Type Priority Associated Diagnoses Date /Time CHLAMYDIA/GC AMPLIFIED Microbiology Routine 07/21/2011 11:26 EST documented as of this encounter Procedures Procedure Name Priority Date/Time Associated Diagnosis Comments CYTOPATHOLOGY Routine 05/10/2010 0:00 EDT documented in this encounter Results * CYTOPATHOLOGY (05/10/2010 0:00 EDT) Pathology Report: CYTOPATHOLOGY REPORT ? Reports generated via electronic interface contain original data; ? however they are lacking the format of the original report. ? Caution should be taken when reading/interpreti ng unformatted reports. ? Name: ? TIA GALVAN ? Accession #: ? [id number] ? : ? 1990 (Age: 19) ??F ?Collect Date: ? 05/10/2010 ? Location: ? [facility] ? Receive Date: ? 05/12/2010 ? Provider: ?ISAAC DOMÍNGUEZ MD ? Copy to: ? Specimen/Source: ?Pap Test, Cervix/Endocervix, ThinPrep Imaging System ? with manual evaluation ? Last Menstrual Period: ? May ? Menstrual/Pregnanc y Status: ? Other: ? HPVA - HPV testing requested if ASC-US on the current ThinPrep Pap test. ? SPECIMEN ADEQUACY ? Satisfactory for Evaluation ? - transformation zone component present ? - scant squamous epithelial component secondary to excessive mucus ? GENERAL CATEGORIZATION ? Negative for Intraepithelial Lesion or Malignancy ? Document reviewed and electronically signed by: ? Addy Stumler, CT(ASCP) ? Report Date: ??05/16/2010 10:31 ? End of Report ? [facility] 05/10/2010 05/12/2010 us Isaac Domínguez MD PATHOLOGY O RDERABLES Final Result [facility] [address] [place] [address] documented in this encounter Visit Diagnoses Not on filedocumented in this encounter
--- OUTSIDE RECORDS SUMMARY | 2024-07-21 18:34 | XMS_ITS | Encounter Summary ---
Author Organization [facility] Address [address] [place] [address] Care Team Providers Care Merchandise Coordinator Name Role Phone Daniel Rich MD Primary Care Provider Unav ailable Encounter Details Date Type Department Care Team (Late st Contact Info) Description 10/14/2012 12:36 EDT - 10/14/2012 12:37 EDT Hospital Encounter [address] [address] Macy Odonnell MD [address] [place] [phone] Discharge Disposition: Home or Self Care Social [...] on filedocumented in this encounter Care Teams Merchandise Coordinator Relationship Specialty Start Date End Date Daniel Rich MD PCP - General 07/21/11 documented as of this encounter
--- OUTSIDE RECORDS SUMMARY | 2024-07-21 18:34 | XMS_ITS | Encounter Summary ---
Author Organization [facility] Address [address] [place] [address] Care Team Providers Care Java Web Application Developer Name Role Phone Unavailable Primary Care Provider Unavailabl e Encounter Details Date Type Department Care Team (Late st Contact Info) Description 05/10/2011 Documentation Visit [facility] Pediatric Primary Care - [address] [phone] Maura Freed MD [address] [place] [phone] Contact dermatitis (Primary Dx) Social History Tobacco Use Types Packs/Day Years Used Date Smoking Tobacco: Never Assessed Comments Unknown Sex and Gender Information Value Date Recorded Sex Assigned at Not on file Legal Sex Female 18:33 EST Gender Identity Not on file Sexual Orientation Not on file documented as of this encounter Progress Notes * Rere Freed MD - 05/10/2011 1932 EDT [facility] TIA PRADO Date of : 1990 Date of Service: 05/10/2011 Primary Provider: unsure SUBJECTIVE Noticed bumps on chest and back for past week, after leaving rehab. Bumps are itchy sometimes, but not keeping her awake. No fever, no URI symptoms, No vomiting/diarrhea. On antibiotics day 6/7 for UTI. OBJECTIVE: 1mm papules mildly erythematous across anterior chest (approx 20 total) and back (approx 50 total). Non-vesicular, no surrounding erythema. ASSESSMENT: Most likely acne. Possibly contact dermatitis. PLAN: Observe vs. Trial 1% hydrocortisone cream bid. F/u prn Rere Freed MD 05/10/2011 19:31 documented in this encounter Plan of Treatment Not on file documented as of this encounter Visit Diagnoses Diagnosis Contact dermatitis- Primary Contact dermatitis and other eczema, due to unspecified cause documented in this encounter
--- OUTSIDE RECORDS SUMMARY | 2024-07-21 18:34 | XMS_ITS | Encounter Summary ---
Author Organization [facility] Address [address] [place] [address] Care Team Providers Care Retail Personal Banker Name Role Phone Daniel Rich MD Primary Care Provider Unav ailable Encounter Details Date Type Department Care Team (Late st Contact Info) Description 07/21/2011 Results Only [facility] Laboratory Services - [facility] ([facility] [address] [place] [phone] Remigio Rock MD [address] [place] [address] [address] [place] [phone] Social History Tobacco Use Types [...] Date/Time Associated Diagnosis Comments CHLAMYDIA/N. GONORRHOEAE AMPLIFIED NUCLEIC ACID Routine 07/21/2011 11:26 EST documented in this encounter Results * CHLAMYDIA/GC AMPLIFIED (07/21/2011 11:26 EST) Specimen Description Urine [facility] Chlamydia Result No Chlamydia trachomatis DNA detected by certified nutritionist mediated amplification. [facility] GC Result No Neisseria gonorrhoeae DNA detected by certified nutritionist mediated amplification. [facility] 07/21/2011 11:2 6 EST 07/21/2011 16:53 EST us Remigio Rock MD MICROBIOLOGY - GENERAL O RDERABLES Final Result [facility] [address] [place] [address] documented in this encounter Visit Diagnoses Not on filedocumented in this encounter Care Teams Retail Personal Banker Relationship Specialty Start Date End Date Daniel Rich MD PCP - General 07/21/11 documented as of this encounter
--- OUTSIDE RECORDS SUMMARY | 2024-07-21 18:34 | XMS_ITS | Encounter Summary ---
Author Organization [facility] Address [address] [place] [address] Care Team Providers Care Career Coordinator Name Role Phone Daniel Rich MD Primary Care Provider Unav ailable Encounter Details Date Type Department Care Team (Latest Contact Info) Description 12/15/2019 Lab Requisition [facility] Pathology & Laboratory Medicine - [address] [address] Alejandra Chase, PERSONALIZED LIVING MANAGER NURSE [address] [place] [phone] Encounter for screening for infections with a predominantly sexual mode of transmission; Encounter for screening for other infectious and parasitic diseases Social History Tobacco Use Types Packs/Day Years [...] Diagnosis Comments CHLAMYDIA/N. GONORRHOEAE AMPLIFIED NUCLEIC ACID Today 12/15/2019 18:30 EDT Encounter for screening for infections with a predominantly sexual mode of transmission Encounter for screening for other infectious and parasitic diseases documented in this encounter Results * CHLAMYDIA/N. GONORRHOEAE AMPLIFIED RNA (12/15/2019 18:30 EDT) Neisseria gonorrhoeae Result Negative Negative 12/16/2019 15:44 EDT [facility] Chlamydia trachomatis Result Negative Negative 12/16/2019 15:44 EDT [facility] Urine URINE / Unknown 12/15/2019 1 8:30 EDT 12/15/2019 21:53 EDT Narrative [facility] - 12/16/2019 15:44 EDT A first catch urine specimen is acceptable for detection of Gonorrhea and Chlamydia, but might detect up to 10% fewer infections when compared with vaginal and endocervical swab samples. us Alejandra Chase PERSONALIZED LIVING MANAGER NURSE MICROBIOLOGY - GENERAL ORD ERABLES Final Result [facility] [address] [place] [address] documented in this encounter Visit Diagnoses Diagnosis Encounter for screening for infections with a predominantly sexual mode of transmission Encounter for screening for other infectious and parasitic diseases documented in this encounter Care Teams Career Coordinator Relationship Specialty Start Date End Date Daniel Rich MD PCP - General 07/21/11 documented as of this encounter
--- OUTSIDE RECORDS SUMMARY | 2024-07-21 18:34 | XMS_ITS | Clinical Summary ---
Author Organization [facility] Address [address] [place] [address] Care Team Providers Care Research Test Engine Evaluator Name Role Phone Daniel Rich MD Primary Care Provider Unav ailable Social History Tobacco Use Types Packs/Day Years Used Date Smoking Tobacco: Never Assessed Interpersonal Safety Answer Date Record ed Physically Hurt Never 03/07/2020 Verbally Threaten Not on file 03/07/2020 Comments Unknown Sex and Gender Information Value Date Recorded Sex Assigned at Not on file Legal Sex Female 18:33 EST Gender Identity Not on file Sexual Orientation Not on file Plan of Treatment Health Maintenance Due Date Last Done Comments Hepatitis B Vaccine (1 of 3 - 19+ 3-dose series) 07/19 COVID-19 Vaccine ( season) 2024 Hepatitis C Screen Completed 10/14/2012 Procedures Procedure Name Priority Date/Time Associated Diagnosis Comments HEPATITIS C AB W REFLEX TO HCV RNA BY PCR Routine 10/14/2012 15:30 EDT from Last 3 Months or Most Recently Relevant to Health Maintenance Results * HEPATITIS C ANTIBODY (10/14/2012 15:30 EDT) Hepatitis C Ab Negative [facility] Comment:Reference Range: Neg ative 10/14/2012 15:3 0 EDT 10/14/2012 20:16 EDT us Macy Odonnell MD CHEMISTRY & BLOOD GAS ORD ERABLES Final Result [facility] [address] [place] [address] from Last 3 Months or Most Recently Relevant to Health Maintenance Insurance MEDICAID [place] Care Teams Research Test Engine Evaluator Relationship Specialty Start Date End Date Daniel Rich MD PCP - General 07/21/11
--- OUTSIDE RECORDS SUMMARY | 2024-07-21 18:34 | XMS_ITS | Referral Summary ---
Author Organization [facility] Address [address] [place] [address] Care Team Providers Care Pond Sawyer Name Role Phone Daniel Rich MD Primary [...] Orientation Not on file Plan of Treatment Not on file Procedures Procedure Name Priority Date/Time Associated Diagnosis [...] ERABLES Final Result [facility] [address] [place] [address] from Last 3 Months or Most Recently Relevant to Health Maintenance Insurance [place]ICAID [place] [facility], [facility] Address: [address] [address] Care Teams Pond Sawyer Relationship Specialty Start Date End Date Daniel Rich MD PCP - General 07/21/11
--- NOTE | 2024-07-21 18:50 | W.ED.GENAD ---
Discharge Plan Disposition Patient Disposition: Home Condition: Stable Discharge Details Clinical Impression: Sty, external, Conjunctivitis Primary Care Provider: Unknown,Unknown ED Provider: Khadar Sims Home Meds and New Rx's Prescriptions: Continued methadone 10 MG/1 ML concentrate 45 mg PO DAILY Mirena 1 EACH intrauterine device 1 ea Intrauterine ONCE Qty: 1 buprenorphine-naloxone [Suboxone] 8-2 mg film 3 film sublingual DAILY Rx Instructions: use only 2 strips/tabs in mouth at one time, 1 under (each) side of tongue naloxone [Narcan] 4 mg/actuation spray,non-aerosol 1 spray MARGARITA ONCE PRN (Reason: opioid overdose) Qty: 2 0RF Discharge Instructions Instructions: Stye, Erythromycin (Ophthalmic), Conjunctivitis ([facility]) ED Additional Instructions: You were seen in the emergency department for your significant right eye stye as well as severe conjunctivitis. I have empirically treated you with antibiotics and provided topical erythromycin ointment to place in the eye 4 times per day for 5 to 7 days. Please continue hot compresses to the stye and express any purulent material out, I would recommend hot compresses at least 4 times per day. Please return for any visual changes, worsening despite treatment or other emergent concerns. Discharge Data Discharge Date/Time-TO BE ENTERED AT DEPARTURE: 07/21/24 20:16 HPI General Date/Time Provider Initiated Documentation: 07/21/24 18:33. HPI Narrative: 34 year-old female presents to ED today by POV/ambulating with a chief complaint of R eye sty- draining pus, and crusty discharge to R eye with onset noticed last night. Quality described as generalized discharge, no pain with eye movement, denies vision loss, no radiation to scleral injection, fever, severe eyelid swelling, chest pain, nausea, vomiting. Severity is described as mild. Palliating factors include nothing specific attempted. Provoking factors include nothing specific. Events leading up to the incident/Associated Symptoms: Patient has history of IVDU. Patient not anticoagulated. Related Data Home Medications ?Medication ?Instructions ?Recorded ?Confirmed levonorgestrel 21 mcg/24 hr (up to 1 ea intrauterine ONCE #1 implant 05/12/15 07/21/24 8 years) 52 mg intrauterine device (Mirena) methadone 10 mg/mL oral concentrate 45 mg PO DAILY 05/12/15 07/21/24 naloxone 4 mg/actuation nasal 1 spray intranasal ONCE PRN opioid 06/09/18 07/21/24 spray (Narcan) overdose #2 ea buprenorphine 8 mg-naloxone 2 mg 3 film sublingual DAILY 07/21/24 07/21/24 sublingual film (Suboxone) Previous Rx's ?Medication ?Instructions ?Recorded naloxone 4 mg/actuation nasal 1 spray intranasal ONCE PRN opioid 06/09/18 spray (Narcan) overdose #2 ea Allergies Allergy/AdvReac Type Severity Reaction Status Date / Time No Known Allergies Allergy Unverified 07/21/24 18:32 General Stated Complaint: RashLesion CLAUDE: 4 Review of Systems All systems reviewed & are unremarkable except as noted in HPI and below Exam Narrative Exam Narrative: GENERAL APPEARANCE: Well-nourished, non-toxic, awake and alert, atraumatic, no acute distress. SKIN: Warm, pink, dry, intact, without rashes/lesions/ulcerations. HEAD: Normocephalic, atraumatic, normal hair distribution for gender/age. EYES: Normal conjunctiva OS, OD: crusty purulent discharge around the right eye with medial lower eyelid stye that is draining, vision intact, nontoxic, no pain with EOM movement ENT: Nares patent, no circumoral cyanosis, no facial swelling NECK: Supple, trachea midline, painless cervical ROM. LUNGS/CHEST: Non-labored respirations, normal A/P diameter, symmetrical expansion, no chest wall deformity HEART (CV/PV): No peripheral edema, no JVD. ABDOMEN: Soft, non-distended, no guarding. MSK: Normal ROM, no swelling/deformity to bilateral UEs or LEs, moving all extremities without weakness, no cyanosis, spine midline without tenderness, normal curvature. NEURO: Mental Status AAOx4 - alert to person, place, time, events No facial droop, no forehead involvement. Motor: No focal weakness - strength 5/5 in bilateral UEs and LEs, proximal and distal, symmetric. Sensory: sensation intact to light touch globally. Gait normal: patient ambulated without ataxia into ED room. PSYCH: euthymic, cooperative, pleasant, appropriate speech Course Vital Signs Vital signs: Vital Signs Temperature 36.6 C 07/21/24 18:30 Pulse 99 H 07/21/24 18:30 Respiratory Rate 15 07/21/24 18:30 Blood Pressure 154/71 H 07/21/24 18:30 Pulse Oximetry 91 L 07/21/24 18:30 Temperature 36.6 C 07/21/24 18:30 Pulse 99 H 07/21/24 18:30 Respiratory Rate 15 07/21/24 18:30 Blood Pressure 154/71 H 07/21/24 18:30 Blood Pressure Position Sitting 07/21/24 18:30 Pulse Oximetry 91 L 07/21/24 18:30 Oxygen Delivery Method Room Air 07/21/24 18:30 Oxygen Flow Rate 0 07/21/24 18:30 Medical Decision Making This dictation utilizes [id number] dictation software and may contain unedited grammatical errors. 34 year-old female presents to ED today by POV/ambulating with a chief complaint of R eye sty- draining pus, and crusty discharge to R eye with onset noticed last night. Quality described as generalized discharge, no pain with eye movement, denies vision loss, no radiation to scleral injection, fever, severe eyelid swelling, chest pain, nausea, vomiting. Severity is described as mild. Palliating factors include nothing specific attempted. Provoking factors include nothing specific. Events leading up to the incident/Associated Symptoms: Patient has history of IVDU. Patients' medical history: IVDU, anxiety and depression. Family and social history: Noncontributory. Pertinent exam findings / vital signs include crusty purulent discharge around the right eye with medial lower eyelid stye that is draining, vision intact, nontoxic, no pain with EOM movement. Differential / pathologies of concern include stye, conjunctivitis, gonococcal conjunctivitis. Diagnostic studies of: -None. Interventions of: -Empiric treatment for gonococcal or chlamydial conjunctivitis, treating for conjunctivitis with erythromycin as well and recommend hot compresses for stye. ED Course/Assessment/Plan: 34-year-old female with history of IV drug use presents with severe conjunctivitis to right eye with a draining stye plan to treat conjunctivitis with topical erythromycin as well as coverage with one-time treatment for gonococcal/chlamydial conjunctivitis and recommend hot compresses for stye relief. Stressed strict return criteria for worsening despite treatment especially with vision loss or severe pain with eye movement. Findings not consistent with orbital cellulitis, loss of vision, scleritis or episcleritis. Disposition of conjunctivitis, stye, external. Patient verbalized understanding of the plan and return to ED criteria and engaged in shared decision making. Medical Records Medical records reviewed: Yes I reviewed the patient's medical records. Quality:SDOH Health Related Social Needs: No Data to Display PFSH All Active Problems (Updated 07/21/24 @ 18:56 by LAURA Gutiérrez) Conjunctivitis (Acute) Sty, external (Acute) IVDU (intravenous drug user) (Acute) Abscess of left forearm (Acute) Medical History (Updated 07/21/24 @ 18:56 by LAURA Gutiérrez) depression anxiety adhd Surgical History Tonsillectomy Family History Mother Mental disorder Father Alcohol abuse Sister No problems noted. Sister No problems noted. Brother No problems noted. Brother No problems noted. Brother No problems noted. Social History Smoking/Tobacco Use Status: Current every day Tobacco Type: cigarettes Smoking risk assessment performed?: Yes Alcohol Intake: never Drug use: Occasionally Substance use type: crack/cocaine, heroin and other Details: methadone Do you feel safe at home: Yes Do you feel safe in your relationship?: Yes
[2024-07-21] MEDS: Erythromycin Ophth Oint 3.5 GM TUBE OD (19:54)
[2024-07-21] MEDS: Azithromycin 250 MG TAB 1000 MG PO (19:54)
[2024-07-21] MEDS: cefTRIAXone 1 GM VIAL IM (19:54)
[2024-07-21] MEDS: Water,Injection,Sterile 10 ML VIAL (19:55)
[2024-07-21 20:04] VITALS: BP 114/75; PULSE 89; RESP 16; O2SAT 88
[2024-07-21] MEDS: Albuterol/Ipratropium 3 ML UPD VIAL UPD (20:10)
[2024-07-21 20:16] VITALS: RESP 13; O2SAT 98
== END 2024-07-21 20:16 | disposition home or self-care (01) ==
PROVIDERS: Emergency Provider Physician Assistant
DX: H10.021 Other mucopurulent conjunctivitis, right eye (principal); H00.012 Hordeolum externum right lower eyelid; F19.90 Other psychoactive substance use, unspecified, uncomplicated; R09.02 Hypoxemia; F17.200 Nicotine dependence, unspecified, uncomplicated
CPT/HCPCS: 94640; 96374; 99284; 99283; J0696; J7620